=== PATIENT | female | born 1965 | race African-American/Black ===

== ENCOUNTER 2021-07-19 19:14 | Emergency (ER) | payer MEDICAID ==
[~2021-07-19] VITALS: Ht 167.6 cm; Wt 82.6 kg
--- NOTE | 2021-07-19 19:29 | NUR ---
pt a/o x3 c/o pain to left shoulder pt with elevated blood pressure bib RA. pt denies chest pain or sob. Dr. Hdz made aware of patient condition.
[2021-07-19 19:41] LABS: HEMATOCRIT 43.9 % (31.2-41.9); MEAN CORPUSCULAR HEMOGLOBIN 31.8 uug (24.7-32.8); MEAN CORPUSCULAR VOLUME 95.3 fL (75.5-95.3); PLATELET COUNT (AUTO) 327 K/uL (179-408)
[2021-07-19 19:45] LABS: CREATININE 1.1 mg/dL (0.6-1.3); POTASSIUM 4.1 mmol/L (3.5-5.1)
[2021-07-19 19:54] LABS: *BILIRUBIN,URIN NEGATIVE (NEGATIVE); *BLOOD, URINE NEGATIVE (NEGATIVE); *CLARITY,URINE CLEAR (CLEAR); *COLOR,URINE YELLOW (YELLOW); *KETONES,URINE NEGATIVE (NEGATIVE); LEUKOCYTE ESTERASE ,URINE NEGATIVE (NEGATIVE); NITRITE, URINE NEGATIVE (NEGATIVE); UGLUCOSE NEGATIVE (NEGATIVE)
--- NOTE | 2021-07-19 19:55 | NUR ---
Dr. Hdz was in for [facility]
[2021-07-19] MEDS ORDERED: HYDROCODONE/APAP 5-325MG TABLET PO ONE (20:00)
[2021-07-19] MEDS ORDERED: KETOROLAC TROMETHAMINE 60 MG INJ IM ONE ×2 (20:00→20:07)
[2021-07-19] MEDS ORDERED: HYDROCODONE/APAP 5-325MG TABLET ONE (20:07)
[2021-07-19] MEDS ORDERED: IBUP-1955 PO (21:22)
[2021-07-19] MEDS ORDERED: HYDR25TA4 PO (21:22)
[2021-07-19 21:27] LABS: BACTERIA,URINE FEW /HPF (NONE SEEN); RBC,URINE 0-3 /HPF (0-3); SQUAMOUS EPITHELIAL CELL,UR FEW /HPF (NONE SEEN); WBC,URINE 0-3 /HPF (0-3)
--- NOTE | 2021-07-19 21:54 | NUR ---
Patient discharged to home in stable condition. Written and verbal after care instructions given. Patient verbalizes understanding of instructions. Stressed follow up or return to ER for worsening s/s. pt provided with taxi voucher, pt to go to [facility]. Pt ambulate without assist, denies pain or sob. all instructions reviewed.
[2021-07-19 21:55] VITALS: BP 126/93
== END 2021-07-19 21:57 | disposition home or self-care (01) ==
LOC: ER 19:18
DX: M25.512 Pain in left shoulder (principal); I10 Essential (primary) hypertension; Z59.01 Sheltered homelessness; F17.210 Nicotine dependence, cigarettes, uncomplicated
CPT/HCPCS: 36415; 73030; 80048; 81001; 84484; 85025; 93005; 96372; 99285; J1885; 70030-TC; A4663